=== PATIENT | male | born 2005 | race African-American/Black ===

== ENCOUNTER 2025-06-19 13:32 | Emergency (ER) | payer MEDICAID ==
[~2025-06-19] VITALS: Ht 175.3 cm; Wt 66.0 kg
[2025-06-19 13:39] VITALS: O2SAT 96
[2025-06-19 13:46] VITALS: BP 117/74; PULSE 63; RESP 18; TEMP 36.7; O2SAT 99
== END 2025-06-19 15:43 | disposition left against medical advice (07) ==
LOC: ER 13:32
DX: M25.532 Pain in left wrist (principal)
CPT/HCPCS: 99281

== ENCOUNTER 2025-06-25 07:37 | Emergency (ER) | payer MEDICAID ==
[~2025-06-25] VITALS: Ht 170.2 cm; Wt 69.0 kg
[2025-06-25 07:41] VITALS: BP 128/84; PULSE 90; RESP 16; TEMP 98.6; O2SAT 100
== END 2025-06-25 10:05 | disposition home or self-care (01) ==
LOC: ER 07:37
DX: M25.532 Pain in left wrist (principal); T43.225A Adverse effect of selective serotonin reuptake inhibitors, initial encounter; F12.90 Cannabis use, unspecified, uncomplicated; Y92.89 Other specified places as the place of occurrence of the external cause
CPT/HCPCS: 73110; 99283